=== PATIENT | male | born 1985 | race Caucasian/White ===

== ENCOUNTER 2020-07-21 02:09 | Inpatient (IN) | payer BC, OTHER ==
[~2020-07-21] VITALS: Ht 180.3 cm; Wt 122.8 kg
--- NOTE | 2020-07-21 02:26 | NUR ---
Patient DESHAWN small from [facility]. Patient was seen at their facility 07/17 for bronchitis and URI. He returned today for worsening SOB and chest tightness. Patient tested +COVID today. CUSTOMER LIAISON patient received Rocephin, Dexamethasone, and Albuterol. Currently patient c/o diff catching his breath with chest tightness and general malaise. Patient RA sat was 84% at this facility; patient continued on 4lpm NC O2. Patient is diaphoretic; afebrile. In NAD. Respirations even and unlabored.
--- NOTE | 2020-07-21 03:27 | NUR ---
Provided toothbrush, toothpaste, and mouthwash to patient.
[2020-07-21] MEDS ORDERED: morphine SULFATE 10 MG/ML, 1ML IVPush PRN (03:30)
[2020-07-21] MEDS ORDERED: hydrALAzine 20 MG/ML, 1ML IVPush PRN (03:30)
[2020-07-21] MEDS ORDERED: ACETAMINOPHEN 325 MG TABLET PO PRN (03:30)
[2020-07-21] MEDS ORDERED: PHARMACY MAY ADJ FOR RENAL FX MC PRN (03:30)
[2020-07-21] MEDS ORDERED: ONDANSETRON 2MG/ML, 2ML IVPush PRN (03:30)
[2020-07-21] MEDS ORDERED: PRED20TA PO (03:51)
[2020-07-21] MEDS ORDERED: ALBU18HF INH (03:51)
--- NOTE | 2020-07-21 03:55 | NUR ---
Report given to KATE Quesada. Patient to be transferred to room 411.
[2020-07-21] MEDS ORDERED: ALBUTEROL HFA 90 MCG/SPRAY INH PRN (04:30)
[2020-07-21] MEDS ORDERED: OMNIPAQUE 350 MG/ML, 100ML BOTTLE ONE (04:31)
[2020-07-21 04:32] LABS: TROPONIN I < 0.015 ng/mL (0.000-0.045)
[2020-07-21 05:01] VITALS: BP 111/74
[2020-07-21] MEDS: ENOXAPARIN 30 MG/0.3 ML SQ SCH ×2 (05:13→16:32)
[2020-07-21] MEDS ORDERED: montelukast PO (05:19)
[2020-07-21] MEDS ORDERED: Flovent INH (05:19)
[2020-07-21 07:06] VITALS: BP 115/76
[2020-07-21 08:20] LABS: BASOPHILS % (AUTO) 0 % (0-1); EOSINOPHILS % (AUTO) 0 % (1-7); LYMPHOCYTES % (AUTO) 6 % (22-44); MD NO; MEAN CORPUSCULAR HEMOGLOBIN 30.1 pg (27.5-34.5); MEAN CORPUSCULAR HGB CONC 34.1 g/dL (33.2-36.2); MEAN PLATELET VOLUME 6.7 fL (7.4-10.4); MONOCYTES % (AUTO) 4 % (2-9); NEUTROPHILS % (AUTO) 90 % (42-75); PLATELET COUNT 330 x10^3/uL (130-400); RED BLOOD COUNT 4.62 x10^6/uL (4.38-5.82); RED CELL DISTRIBUTION WIDTH 13.2 % (9.4-14.8)
[2020-07-21 08:36] LABS: ALANINE AMINOTRANSFERASE 45 U/L (12-78); ALBUMIN 2.9 g/dL (3.4-5.0); ANION GAP 5 mmol/L (5-15); CALCIUM 8.2 mg/dL (8.5-10.1); CHLORIDE 106 mmol/L (98-107); CREATININE 1.11 mg/dL (0.7-1.3)
[2020-07-21 08:42] LABS: ALKALINE PHOSPHATASE 63 U/L (45-117); BILIRUBIN,TOTAL 0.8 mg/dL (0.2-1.0); TOTAL PROTEIN 7.3 g/dL (6.4-8.2)
[2020-07-21] MEDS: ASCORBIC ACID 500 MG TABLET PO SCH ×2 (09:23→21:21)
[2020-07-21] MEDS: OMEPRAZOLE 20 MG CAPSULE.DR PO SCH (09:23)
[2020-07-21] MEDS: GUAIFENESIN/DM 200-20MG, 10ML UDC PO SCH ×3 (09:23→21:35)
[2020-07-21] MEDS: ZINC SULFATE 220 MG CAPSULE PO SCH (09:23)
[2020-07-21] MEDS: DEXAMETHASONE 4 MG/ML, 1ML IVPush SCH (09:23)
[2020-07-21] MEDS: CHOLECALCIFEROL 5,000u TAB PO SCH (09:23)
[2020-07-21] MEDS: DOXYCYCLINE 100MG TABLET PO SCH ×2 (09:23→21:21)
[2020-07-21] MEDS: THIAMINE 100MG TABLET PO SCH (09:23)
[2020-07-21 12:06] VITALS: BP 125/80
[2020-07-21] MEDS ORDERED: OXYcodone IR 5MG TABLET ONE (12:50)
[2020-07-21] MEDS ORDERED: BENZONATATE 100 MG CAPSULE ONE (12:51)
[2020-07-21 12:59] LABS: RAPID INFLUENZA A Negative (Negative); RAPID INFLUENZA B Negative (Negative)
[2020-07-21] MEDS: BENZONATATE 100 MG CAPSULE PO SCH ×2 (13:01→21:21)
[2020-07-21] MEDS: OXYcodone IR 5MG TABLET PO PRN (13:02)
[2020-07-21 20:30] VITALS: BP 116/73
[2020-07-21] MEDS: CEFTRIAXONE PMX 1GM/50ML 50 ML IVPB SCH (21:21)
[2020-07-21] MEDS: MELATONIN 5 MG TABLET PO SCH (21:21)
[2020-07-22 01:00] VITALS: BP 124/61
[2020-07-22] MEDS: GUAIFENESIN/DM 200-20MG, 10ML UDC PO SCH ×4 (04:17→20:43)
[2020-07-22] MEDS: ENOXAPARIN 30 MG/0.3 ML SQ SCH ×2 (04:17→17:54)
[2020-07-22] MEDS: OXYcodone IR 5MG TABLET PO PRN (04:25)
[2020-07-22 06:40] LABS: BASOPHILS % (AUTO) 0 % (0-1); EOSINOPHILS % (AUTO) 0 % (1-7); LYMPHOCYTES % (AUTO) 7 % (22-44); MEAN CORPUSCULAR HEMOGLOBIN 29.7 pg (27.5-34.5); MEAN CORPUSCULAR HGB CONC 33.7 g/dL (33.2-36.2); MEAN PLATELET VOLUME 6.6 fL (7.4-10.4); MONOCYTES % (AUTO) 7 % (2-9); NEUTROPHILS % (AUTO) 86 % (42-75); PLATELET COUNT 403 x10^3/uL (130-400); RED BLOOD COUNT 4.38 x10^6/uL (4.38-5.82); RED CELL DISTRIBUTION WIDTH 13.4 % (9.4-14.8)
[2020-07-22 07:33] LABS: MD SCAN
[2020-07-22 07:39] LABS: ANION GAP 6 mmol/L (5-15); CHLORIDE 101 mmol/L (98-107); CREATININE 0.97 mg/dL (0.7-1.3)
[2020-07-22 08:12] VITALS: BP 112/73
[2020-07-22] MEDS ORDERED: REMDESIVIR 200 MG in SODIUM CHLORIDE 0.9% 250 ML IVPB ONE (09:30)
[2020-07-22] MEDS: ASCORBIC ACID 500 MG TABLET PO SCH ×2 (10:56→20:44)
[2020-07-22] MEDS: THIAMINE 100MG TABLET PO SCH (10:57)
[2020-07-22] MEDS: BENZONATATE 100 MG CAPSULE PO SCH ×3 (10:57→20:43)
[2020-07-22] MEDS: CHOLECALCIFEROL 5,000u TAB PO SCH (10:57)
[2020-07-22] MEDS: ZINC SULFATE 220 MG CAPSULE PO SCH (10:57)
[2020-07-22] MEDS: OMEPRAZOLE 20 MG CAPSULE.DR PO SCH (10:57)
[2020-07-22] MEDS: DEXAMETHASONE 4 MG/ML, 1ML IVPush SCH (10:58)
[2020-07-22] MEDS: DOXYCYCLINE 100MG TABLET PO SCH ×2 (10:58→20:44)
[2020-07-22 13:02] VITALS: BP 128/77
[2020-07-22] MEDS ORDERED: POTASSIUM CHLORIDE 20 MEQ TAB.ER.PRT PO ONE (16:30)
[2020-07-22] MEDS ORDERED: FUROSEMIDE 40 MG/4 ML IV ONE (16:30)
[2020-07-22 19:29] VITALS: BP 111/74
[2020-07-22] MEDS: MELATONIN 5 MG TABLET PO SCH (20:44)
[2020-07-22] MEDS: CEFTRIAXONE PMX 1GM/50ML 50 ML IVPB SCH (20:55)
[2020-07-23 01:03] VITALS: BP 112/76
[2020-07-23] MEDS: ENOXAPARIN 30 MG/0.3 ML SQ SCH ×2 (04:07→17:29)
[2020-07-23] MEDS: GUAIFENESIN/DM 200-20MG, 10ML UDC PO SCH ×4 (04:08→20:48)
[2020-07-23 06:14] LABS: D-DIMER 0.4 ug/mlFEU (0.00-0.52); INTERNATIONAL NORMALIZED RATIO 1.05 (0.93-1.1); PROTHROMBIN TIME 11.1 Seconds (9.6-11.5)
[2020-07-23 06:26] VITALS: BP 112/73
[2020-07-23 06:27] LABS: ANION GAP 6 mmol/L (5-15); CHLORIDE 104 mmol/L (98-107)
[2020-07-23 06:28] LABS: ALANINE AMINOTRANSFERASE 37 U/L (12-78); ALBUMIN 2.9 g/dL (3.4-5.0); ALKALINE PHOSPHATASE 62 U/L (45-117); BILIRUBIN,TOTAL 0.6 mg/dL (0.2-1.0); CALCIUM 8.7 mg/dL (8.5-10.1); CREATININE 1.03 mg/dL (0.7-1.3); TOTAL PROTEIN 7.4 g/dL (6.4-8.2)
[2020-07-23 06:30] LABS: C-REACTIVE PROTEIN, QUANT 9.2 mg/dL (0.02-0.49)
[2020-07-23] MEDS: ZINC SULFATE 220 MG CAPSULE PO SCH (09:14)
[2020-07-23] MEDS: BENZONATATE 100 MG CAPSULE PO SCH ×3 (09:14→20:48)
[2020-07-23] MEDS: CHOLECALCIFEROL 5,000u TAB PO SCH (09:14)
[2020-07-23] MEDS: THIAMINE 100MG TABLET PO SCH (09:14)
[2020-07-23] MEDS: OMEPRAZOLE 20 MG CAPSULE.DR PO SCH (09:14)
[2020-07-23] MEDS: ASCORBIC ACID 500 MG TABLET PO SCH ×2 (09:14→20:48)
[2020-07-23] MEDS: DOXYCYCLINE 100MG TABLET PO SCH ×2 (09:14→20:48)
[2020-07-23] MEDS: DEXAMETHASONE 4 MG/ML, 1ML IVPush SCH (09:15)
[2020-07-23] MEDS ORDERED: REMDESIVIR 100 MG in SODIUM CHLORIDE 0.9% 250 ML IVPB SCH (09:30)
[2020-07-23] MEDS: REMDESIVIR 100 MG in SODIUM CHLORIDE 0.9% 250 ML IVPB SCH (11:59)
[2020-07-23 12:07] VITALS: BP 122/80
[2020-07-23 18:53] VITALS: BP 110/72
[2020-07-23] MEDS: MELATONIN 5 MG TABLET PO SCH (20:48)
[2020-07-23] MEDS: CEFTRIAXONE PMX 1GM/50ML 50 ML IVPB SCH (20:52)
[2020-07-24 00:59] VITALS: BP 109/72
[2020-07-24] MEDS: ENOXAPARIN 30 MG/0.3 ML SQ SCH ×2 (04:23→15:43)
[2020-07-24] MEDS: GUAIFENESIN/DM 200-20MG, 10ML UDC PO SCH ×4 (04:23→21:54)
[2020-07-24 06:41] VITALS: BP 110/72
[2020-07-24 07:28] LABS: CHLORIDE 105 mmol/L (98-107)
[2020-07-24] MEDS ORDERED: DIPHENOXYLATE/ATROPINE TABLET PO ONE (07:30)
[2020-07-24] MEDS ORDERED: DIPHENOXYLATE/ATROPINE TABLET PO PRN (07:30)
[2020-07-24 07:38] LABS: ALANINE AMINOTRANSFERASE 31 U/L (12-78); ALBUMIN 2.7 g/dL (3.4-5.0); ALKALINE PHOSPHATASE 55 U/L (45-117); ANION GAP 6 mmol/L (5-15); BILIRUBIN,TOTAL 0.7 mg/dL (0.2-1.0); CALCIUM 8.5 mg/dL (8.5-10.1); CREATININE 0.97 mg/dL (0.7-1.3); TOTAL PROTEIN 6.7 g/dL (6.4-8.2)
[2020-07-24] MEDS: THIAMINE 100MG TABLET PO SCH (08:03)
[2020-07-24] MEDS: OMEPRAZOLE 20 MG CAPSULE.DR PO SCH (08:03)
[2020-07-24] MEDS: ZINC SULFATE 220 MG CAPSULE PO SCH (08:03)
[2020-07-24] MEDS: BENZONATATE 100 MG CAPSULE PO SCH ×3 (08:04→21:55)
[2020-07-24] MEDS: DOXYCYCLINE 100MG TABLET PO SCH ×2 (08:04→21:55)
[2020-07-24] MEDS: CHOLECALCIFEROL 5,000u TAB PO SCH (08:04)
[2020-07-24] MEDS: ASCORBIC ACID 500 MG TABLET PO SCH ×2 (08:04→21:55)
[2020-07-24] MEDS: DEXAMETHASONE 4 MG/ML, 1ML IVPush SCH (08:05)
[2020-07-24] MEDS: REMDESIVIR 100 MG in SODIUM CHLORIDE 0.9% 250 ML IVPB SCH (11:00)
[2020-07-24 14:50] VITALS: BP 124/82
[2020-07-24 18:30] VITALS: BP 113/75
[2020-07-24] MEDS: CEFTRIAXONE PMX 1GM/50ML 50 ML IVPB SCH (21:54)
[2020-07-24] MEDS: MELATONIN 5 MG TABLET PO SCH (21:55)
[2020-07-25 03:41] VITALS: BP 98/65
[2020-07-25] MEDS: ENOXAPARIN 30 MG/0.3 ML SQ SCH ×2 (03:41→15:39)
[2020-07-25] MEDS: GUAIFENESIN/DM 200-20MG, 10ML UDC PO SCH ×4 (03:41→22:26)
[2020-07-25 06:42] LABS: ALBUMIN 2.6 g/dL (3.4-5.0); ANION GAP 5 mmol/L (5-15); CALCIUM 8.2 mg/dL (8.5-10.1); CHLORIDE 108 mmol/L (98-107)
[2020-07-25 06:46] LABS: ALANINE AMINOTRANSFERASE 32 U/L (12-78); ALKALINE PHOSPHATASE 51 U/L (45-117); BILIRUBIN,TOTAL 0.5 mg/dL (0.2-1.0); CREATININE 0.91 mg/dL (0.7-1.3); TOTAL PROTEIN 6.1 g/dL (6.4-8.2)
[2020-07-25 07:41] VITALS: BP 104/68
[2020-07-25] MEDS ORDERED: CHOLECALCIFEROL 1,000 UNIT TABLET ONE (08:25)
[2020-07-25] MEDS: OMEPRAZOLE 20 MG CAPSULE.DR PO SCH (08:31)
[2020-07-25] MEDS: DEXAMETHASONE 4 MG/ML, 1ML IVPush SCH (08:31)
[2020-07-25] MEDS: BENZONATATE 100 MG CAPSULE PO SCH ×3 (08:32→22:25)
[2020-07-25] MEDS: THIAMINE 100MG TABLET PO SCH (08:32)
[2020-07-25] MEDS: ZINC SULFATE 220 MG CAPSULE PO SCH (08:32)
[2020-07-25] MEDS: ASCORBIC ACID 500 MG TABLET PO SCH ×2 (08:32→22:26)
[2020-07-25] MEDS: DOXYCYCLINE 100MG TABLET PO SCH ×2 (08:33→22:25)
[2020-07-25] MEDS: CHOLECALCIFEROL 5,000u TAB PO SCH (08:33)
[2020-07-25] MEDS: REMDESIVIR 100 MG in SODIUM CHLORIDE 0.9% 250 ML IVPB SCH (10:56)
[2020-07-25 13:39] VITALS: BP 113/74
[2020-07-25 19:22] VITALS: BP 112/73
[2020-07-25] MEDS: CEFTRIAXONE PMX 1GM/50ML 50 ML IVPB SCH (22:25)
[2020-07-25] MEDS: MELATONIN 5 MG TABLET PO SCH (22:25)
[2020-07-26 00:14] VITALS: BP 111/72
[2020-07-26] MEDS: ENOXAPARIN 30 MG/0.3 ML SQ SCH (04:23)
[2020-07-26] MEDS: GUAIFENESIN/DM 200-20MG, 10ML UDC PO SCH ×2 (04:23→08:19)
[2020-07-26 08:02] VITALS: BP 113/78
[2020-07-26] MEDS: DEXAMETHASONE 4 MG/ML, 1ML IVPush SCH (08:18)
[2020-07-26] MEDS: OMEPRAZOLE 20 MG CAPSULE.DR PO SCH (08:18)
[2020-07-26] MEDS: ASCORBIC ACID 500 MG TABLET PO SCH (08:19)
[2020-07-26] MEDS: BENZONATATE 100 MG CAPSULE PO SCH (08:19)
[2020-07-26] MEDS: ZINC SULFATE 220 MG CAPSULE PO SCH (08:19)
[2020-07-26] MEDS: CHOLECALCIFEROL 5,000u TAB PO SCH (08:19)
[2020-07-26] MEDS: DOXYCYCLINE 100MG TABLET PO SCH (08:20)
[2020-07-26] MEDS ORDERED: CEFD300C37 PO (08:22)
[2020-07-26] MEDS ORDERED: DEXA6TAB6 PO (08:22)
[2020-07-26] MEDS ORDERED: BENZ-17 PO (08:22)
[2020-07-26] MEDS ORDERED: ALBU18HF INH (08:22)
[2020-07-26] MEDS ORDERED: DOXY100T PO (08:22)
[2020-07-26] MEDS: THIAMINE 100MG TABLET PO SCH (08:26)
[2020-07-26] MEDS: REMDESIVIR 100 MG in SODIUM CHLORIDE 0.9% 250 ML IVPB SCH (10:20)
== END 2020-07-26 12:40 | disposition home or self-care (01) | DRG 177 ==
LOC: ED 04:13 → EDIP 04:56 → 4WST 04:57 → 3N 07-24 12:34
PROVIDERS: ADMIT Family Medicine; ATTEND Hospitalist
DX: U07.1 COVID-19 (principal); J12.89 Other viral pneumonia; J96.01 Acute respiratory failure with hypoxia; J45.21 Mild intermittent asthma with (acute) exacerbation; E66.9 Obesity, unspecified; K21.9 Gastro-esophageal reflux disease without esophagitis; Z68.37 Body mass index [BMI] 37.0-37.9, adult; Z80.7 Family history of other malignant neoplasms of lymphoid, hematopoietic and related tissues
CPT/HCPCS: 36415; 71045; 71275; 80048; 80053; 82728; 83615; 84484; 85025; 85379; 85610; 86140; 87040; 87400; 93005; 96374; 96375; 99285; G0378; J0696; J1100; J1650; J1940; Q9967; J7050